=== PATIENT | female | born 1945 | race Caucasian/White ===

== ENCOUNTER → 2020-07-23 15:21 | Outpatient (CLI) | payer MEDICARE, SELFPAY ==
--- NOTE | 2020-07-23 | DI.MG.S_ITS ---
BILATERAL DIGITAL SCREENING MAMMOGRAM 3D/2D WITH CAD: 07/23/2020 CLINICAL: Routine screening. Baseline by default. No prior exams were available for comparison. There are scattered fibroglandular elements in both breasts. Current study was also evaluated with a Computer Aided Detection (CAD) system. There are segmental amorphous calcifications in the left breast at 12 o'clock middle depth. No other significant masses, calcifications, or other findings are seen in either breast. IMPRESSION: INCOMPLETE: NEEDS ADDITIONAL IMAGING EVALUATION The segmental coarse calcifications in the left breast are indeterminate. Recommend magnification views. If prior studies can be obtained for comparison, comparison can be made and further workup could possibly be averted. This exam was interpreted at Station ID: [id number]. NOTE: For mammograms, a report in lay terms will be sent to the patient. Approximately 15% of breast malignancies will not be visualized mammographically. In the management of a palpable breast mass, a negative mammogram must not discourage biopsy of a clinically suspicious lesion. Electronically Signed By: Daniele Walton acr/:07/24/2020 17:57:00 letter sent: Additional Imaging Needed ACR BI-RADS Category 0: Incomplete [id number]
== END ==
PROVIDERS: PCP Internal Medicine; Referring Provider Internal Medicine; Visit Provider Internal Medicine
DX: Z12.31 Encounter for screening mammogram for malignant neoplasm of breast (principal)
CPT/HCPCS: 77063; 77067

== ENCOUNTER → 2020-08-17 10:51 | Outpatient (CLI) | payer MEDICARE, SELFPAY ==
--- NOTE | 2020-08-17 | DI.MG.S_ITS ---
UNILATERAL LEFT DIGITAL DIAGNOSTIC MAMMOGRAM 3D/2D WITH ADDITIONAL VIEWS: 08/17/2020 CLINICAL: Additional evaluation requested from prior study. Comparison is made to exam dated: 07/23/2020 mammogram - [facility]. There are scattered fibroglandular elements in left breast. There are segmental coarse heterogeneous calcifications in the left breast at 1 o'clock middle depth. No other significant masses or calcifications are seen in the breast. IMPRESSION: SUSPICIOUS OF MALIGNANCY The segmental coarse heterogeneous calcifications in the left breast are at a low suspicion for malignancy. A stereotactic biopsy is recommended. Findings and recommendations were discussed with the patient during today's examination by Dr. Hager. This exam was interpreted at Station ID: [id number]. NOTE: For mammograms, a report in lay terms will be sent to the patient. Approximately 15% of breast malignancies will not be visualized mammographically. In the management of a palpable breast mass, a negative mammogram must not discourage biopsy of a clinically suspicious lesion. Electronically Signed By: Michael Doran M.D. aty/:08/17/2020 13:16:03 letter sent: Biopsy Required ACR BI-RADS Category 4a: Suspicious abnormality - low suspicion for malignancy [id number]
[2020-08-17 12:45] LABS: Aspartate Aminotransferase 27 IU/L (14-36); BUN Creatinine Ratio 30.3 (6-22); Blood Urea Nitrogen 20 mg/dL (7-17); Calcium 9.6 mg/dL (8.4-10.2); Carbon Dioxide 29 mmol/L (22-32); Chloride 99 mmol/L (98-107); Cholesterol 172 mg/dL (140-199); Estimated Glomerular Filt Rate > 60.0 mL/min (>60); Glucose 114 mg/dL (80-110); HDL Cholesterol 37 mg/dL (40-60); HEMOLYSIS < 15 (0-50); LDL Cholesterol Calculated 65 mg/dL (<100); Potassium 4.2 mmol/L (3.4-5.1); Sodium 136 mmol/L (137-145); Triglycerides 349 mg/dL (35-150)
--- NOTE | 2020-09-26 15:50 | ONC.MSW ---
Description: Initial Referral Navigation T/C Activity: M[facility] called and left pt a message confirming that we've received her referral. Requested a return call to clarify when she want's to schedule, there was a note in her records from her doctor stating that pt will be gone on a road trip for the next 2-months. Will update scheduling once we confirm her plan.
== END ==
PROVIDERS: PCP Internal Medicine; Referring Provider Internal Medicine; Visit Provider Internal Medicine
DX: R92.8 Other abnormal and inconclusive findings on diagnostic imaging of breast (principal); R92.1 Mammographic calcification found on diagnostic imaging of breast; I10 Essential (primary) hypertension; E78.2 Mixed hyperlipidemia
CPT/HCPCS: 36415; 77065; 80048; 80061; 84450; G0279

== ENCOUNTER → 2020-12-14 11:10 | Outpatient (CLI) | payer MEDICARE, SELFPAY ==
[2020-12-14] MEDS: COVID-19 VACC #1, MRNA(MOD) 100 MCG/0.5 ML VIAL IM (11:25)
== END ==
PROVIDERS: PCP Internal Medicine; Visit Provider Internal Medicine
DX: Z23 Encounter for immunization (principal)
CPT/HCPCS: 0011A; 91301

== ENCOUNTER → 2020-12-29 07:47 | Outpatient (CLI) | payer MEDICARE, SELFPAY ==
--- NOTE | 2020-12-29 08:00 | DI.MRI.S_ITS ---
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 PROCEDURE: MR BREAST BI WO/W CON INDICATIONS: Breast cancer, surgical planning, size of lesion TECHNIQUE: The patient was placed prone in a dedicated breast imaging coil. Precontrast axial STIR and 3D FLASH without fat saturation sequences were obtained. Both before and after bolus injection of contrast, sequential 1-minute axial 3D FLASH with fat saturation sequences for 3 time points, with subtraction images and maximum intensity projections (MIP's) generated. Delayed sagittal FLASH images with fat saturation were also obtained. Computer-aided detection, including computer algorithm analysis of MRI image data for lesion detection and characterization, pharmacokinetic analysis, with further physician review for interpretation, was performed. CONTRAST: 20 cc ProHance IV contrast. COMPARISON: [facility], MG, MG BREAST SPECIMEN LEFT, 09/06/2020, 13:24. [facility], MG, MG DIGITAL BREAST TOMOSYNTHESIS BREAST BIOPSY LEFT, 09/06/2020, 13:16. , , MM SPECIAL VIEW LT, 08/17/2020, 12:48. , MG, MM SCREENING MAMMO BI, 07/23/2020, 15:46. FINDINGS: Image quality: Excellent. There is mild background parenchymal enhancement. Right breast: No mass or suspicious enhancement. Left breast: There is clumped non mass enhancement in the 2-3 o'clock positions middle depth. This measures approximately 4 x 3.7 x 2.3 cm, (14/60 and /88). This corresponds to the mammographic region of coarse heterogenous and amorphous calcification which measures approximately 3.6 x 2.8 x 2.6 cm. Kinetic analysis demonstrates fast initial phase and washout delayed phase. Biopsy clip is at the superior margin of this lesion, (/72). There is an enhancing mass in the 7:00 position middle depth measuring 0.6 x 0.6 x 0.3 cm, (19/103 and 6/33). Kinetic analysis demonstrates fast initial phase and washout delayed phase. No correlate seen on prior mammograms. Miscellaneous: Enlarged left axillary lymph nodes. Largest measuring 2.1 x 1.7 x 1.5 cm, (4/115 and 19/119). There are a few small rounded intramammary lymph nodes in the left breast posterior depth. No enlarged right axillary nodes. IMPRESSION: KNOWN BIOPSY PROVEN MALIGNANCY 1. Right breast: No mass or suspicious enhancement. 2. Left breast: Clumped non mass enhancement at 2-3 o'clock middle depth at the site of biopsy proven DCIS. This corresponds to the region of amorphous and coarse heterogeneous calcifications. The area of enhancement is larger than the area of calcifications on mammogram, and thus mammogram may be underestimating the extent of disease. 3. Left breast: 7 o'clock middle depth enhancing mass measuring 0.6 cm. This is suspicious for multicentric disease. -Targeted ultrasound is recommended. 4. Axilla: Enlarged left axillary lymph nodes. -Targeted ultrasound is recommended. BIRADS 0, needs additional imaging. COMMENT: The imaging literature indicates that a negative contrast breast MRI examination has a high sensitivity and a moderate specificity for detecting and excluding invasive carcinomas to a detection threshold of 3-5 mm; nonetheless, appropriate clinical and mammographic follow-up are recommended. MRI is not sensitive for detecting DCIS (ductal carcinoma in situ) and may not detect large invasive neoplasms that show only minimal enhancement such as mucinous carcinoma. If there are suspicious calcifications or clinically worrisome palpable masses, then biopsy should still be considered. Invasive neoplasms can be hidden by co-existent and benign enhancement caused by mastitis, hormone therapy effects, radiation therapy, , and recent biopsy or surgery. False positive examinations can occur in a number of circumstances, including breasts that have recently been subject to invasive procedures and those that contain atypical ductal hyperplasia, hormonally stimulated glandular tissue, fat necrosis, or radial scars. Dictated by: Fransisco Larios M.D. on 12/29/2020 at 16:26 This exam was interpreted at Station ID: [id number]. Electronically Signed By: Fransisco Larios M.D. slc/:12/29/2020 17:42:21 copy to: PAT CHEEK BI-RADS Category 6: Known biopsy proven malignancy [id number]
== END ==
PROVIDERS: PCP Internal Medicine; Referring Provider Surgery; Visit Provider Surgery
DX: D05.12 Intraductal carcinoma in situ of left breast (principal); R59.0 Localized enlarged lymph nodes
CPT/HCPCS: 77049

== ENCOUNTER → 2021-01-11 11:00 | Outpatient (CLI) | payer MEDICARE, SELFPAY ==
[2021-01-11] MEDS: COVID-19 VACC #2, MRNA(MOD) 100 MCG/0.5 ML VIAL IM (11:09)
== END ==
PROVIDERS: PCP Internal Medicine; Visit Provider Internal Medicine
DX: Z23 Encounter for immunization (principal)
CPT/HCPCS: 0012A; 91301

== ENCOUNTER → 2021-01-11 11:21 | Outpatient (CLI) | payer MEDICARE, SELFPAY ==
--- NOTE | 2021-01-11 11:22 | DI.US.S_ITS ---
ULTRASOUND OF LEFT BREAST AND AXILLA: 01/11/2021 CLINICAL: Recent left breast cancer diagnosis. [facility] No prior exams were available for comparison. Color flow and real-time ultrasound of the left breast axilla were performed. Jaramillo scale images of the real-time examination were reviewed. There is a 0.7 cm x 0.2 cm x 0.4 cm wider than tall oval mass with mildly angular margins in the left breast at 4:30 o'clock middle depth 8 cm from the nipple. This oval mass is hypoechoic. This likely correlates with breast MRI findings. Color flow imaging demonstrates that there is no vascularity present. No significant abnormalities were seen sonographically in the left axilla. Normal axillary lymph nodes are visualized. IMPRESSION: SUSPICIOUS OF MALIGNANCY The 0.7 cm x 0.2 cm x 0.4 cm wider than tall oval mass in the left breast at the 4:30 o'clock position most likely correlates with MRI findings and is suspicious for malignancy. An ultrasound guided biopsy is recommended. Of note, this mass was described at the 7 o'clock position on MRI report, but review of images demonstrated that the finding is in the lower outer quadrant which correlates more closely to the 4:30 o'clock mass described above. Additionally, the 7 o'clock axis and lower inner quadrant of the left breast was interogated today and demonstrated no sonographic abnormalities. There are multiple normal appearing left axillary lymph nodes seen on today's study. No axillary adenopathy visualized. The prominent axillary lymph nodes seen on MRI likely represented reactive nodes. Findings and recommendations were discussed with the patient during today's examination. This exam was interpreted at Station ID: [id number]. Electronically Signed By: Michael Doran M.D. attami/:01/11/2021 17:28:08 copy to: PTA DAVIS letter sent: Biopsy Required Ultrasound BI-RADS: 4 Suspicious for malignancy
== END ==
PROVIDERS: PCP Internal Medicine; Referring Provider Surgery; Visit Provider Surgery
DX: N63.23 Unspecified lump in the left breast, lower outer quadrant (principal); R92.8 Other abnormal and inconclusive findings on diagnostic imaging of breast; D05.12 Intraductal carcinoma in situ of left breast
CPT/HCPCS: 76642

== ENCOUNTER → 2021-01-25 07:36 | Outpatient (CLI) | payer MEDICARE, SELFPAY ==
--- NOTE | 2021-01-25 | PATH_ITS ---
[facility] Accession Number: [id number] . 01 Material submitted: . breast - LEFT BREAST MASS 4:30 [id number] . 02 Diagnosis: Left Breast Mass 4:30, 8 cm from Nipple, Ultrasound-Guided Needle Core Biopsy: Ductal carcinoma in-situ of the breast with the following features: . Procedure: Needle Biopsy: Specimen laterality: left. Tumor site: 4:30, 8 cm from nipple. Histologic type: Ductal carcinoma in situ. Architectural pattern: Cribriform. Nuclear grade: Grade I (low). Necrosis: Not identified. Microcalcifications: Not identified. Biomarker studies: Please see microscopic description. MRV 01/30/2021 1457 Local . 02 Comment: Results discussed with Dr. Srikanth Barnard's nurse, on 01-30-21 at approximately 2:57 p.m. . 02 Electronically signed: . Gavi Arora MD, Pathologist NPI- [id number] . 01 Gross description: . Received one formalin-filled container, labeled with the patient's name and labeled L breast 4:30, 8 cm FN. The specimen is received with a plastic filter in container, sample loose in container and consists of multiple fragments of light yellow to yellow-odonnell pieces of soft tissue which range in size from less than 0.1 cm to 0.3 x 0.2 x 0.2 cm. The specimen is filtered and entirely submitted in one cassette. Possible collection date and time: 01/25/21 at 9:28. Total fixation time: Approximately 17 hours. ([id number]) /R 01/26/2021 0230 Local . 02 Microscopic: . Immunohistochemical stains were performed. The control stains show appropriate reactivity. . RESULTS: P63: Positive around regions of interest. Myosin: Positive around regions of interest. . The presence of myosin and p63 staining around the ducts of interest support an interpretation of ductal carcinoma in situ and mitigate against an invasive process. . Estrogen Receptor (ER) Status: Positive, greater than 90% of tumor nuclei. Average intensity of staining: Strong intensity. Primary antibody: SP1 . CK 5/6: Diminished in region of interest. . The absence of CK5/6 immunostaining and the strong immunopositivity of ER staining in the region of interest supports a diagnosis of ductal carcinoma in situ and mitigates against the presence of usual ductal hyperplasia. . * This test was developed and its performance characteristics determined by [employer]. It has not been cleared or approved by the U.S. Food and Drug Administration. The FDA has determined that such clearance or approval is not necessary. This test is used for clinical purposes. It should not be regarded as investigational or for research. . 02 Pathologist provided ICD-10: D05.12 . 02 CPT . 449123, 021437, O82248, Q08305 Performed at: [facility] [address] [id number] MD Maurice Tao MD Phone: [phone] Performed at: 02 [facility] [id number] [place] [id number] MD Aliza Muller MD Phone: [phone]
--- NOTE | 2021-01-25 | DI.MG.S_ITS ---
UNILATERAL LEFT DIGITAL DIAGNOSTIC MAMMOGRAM POST-EXCISIONAL BIOPSY: 01/25/2021 CLINICAL: Left breast mass. Comparison is made to exams dated: 01/11/2021 ultrasound, 12/29/2020 breast MRI, 08/17/2020 mammogram, and 07/23/2020 mammogram - [facility]. There are scattered fibroglandular elements in left breast. There is a marker clip in the appropriate position in the left breast at 4 o'clock. This marker clip placement is at the biopsy site. IMPRESSION: POST PROCEDURE MAMMOGRAM FOR MARKER PLACEMENT There was a successful marker clip placement in the left breast anterior depth. This exam was interpreted at Station ID: [id number]. NOTE: For mammograms, a report in lay terms will be sent to the patient. Approximately 15% of breast malignancies will not be visualized mammographically. In the management of a palpable breast mass, a negative mammogram must not discourage biopsy of a clinically suspicious lesion. Electronically Signed By: Aron bernal/:01/25/2021 12:59:13 copy to: PAT CHEEK BI-RADS Category Post-procedure mammogram for marker placement
--- NOTE | 2021-01-25 07:37 | DI.US.S_ITS ---
ULTRASOUND GUIDED BIOPSY LEFT BREAST USING VACUUM DEVICE WITH MARKING DEVICE INSERTED: 01/25/2021 CLINICAL: Left breast mass. PATIENT CONSENT: Risks (minor bleeding, infection, vasovagal reaction and repeat procedure), benefits and alternatives were explained to the patient and written informed consent was obtained. Correlation is made to exams dated: 01/25/2021 mammogram, 01/11/2021 ultrasound, 12/29/2020 breast MRI - [facility], 09/06/2020 specimen, 09/06/2020 stereotactic biopsy - [facility], and 07/23/2020 mammogram [facility]. An ultrasound guided biopsy using real-time ultrasound was performed for the lesion located in the left breast at 4 o'clock anterior depth. The skin was prepped in the usual manner. Local anesthetic was administered to the access site. A small incision was made in the breast. The abnormality was approached from the lateral aspect. A biopsy needle was placed adjacent to the abnormality under ultrasound guidance. Once the needle was documented to be in the correct location, ten specimens were obtained using the Mammotome biopsy system. The patient received additional local anesthetic during the procedure. A clip was inserted into the biopsy cavity. The specimens were sent to the laboratory for pathological analysis. IMPRESSION: ULTRASOUND GUIDED BIOPSY MALIGNANT Ultrasound guided biopsy of the lesion in the left breast at 4 o'clock anterior depth was successful. Pathology demonstrate Ductal carcinoma in-situ. Pathology results are concordant with imaging findings. A surgical/oncologic consultation is recommended. This exam was interpreted at Station ID: [id number]. Aron bernal,slc/:01/31/2021 12:26:56 copy to: PAT DAVIS
== END ==
PROVIDERS: PCP Internal Medicine; Referring Provider Surgery; Visit Provider Surgery
DX: D05.12 Intraductal carcinoma in situ of left breast (principal)
CPT/HCPCS: 19083; 77065

== ENCOUNTER → 2021-03-28 08:16 | Outpatient (CLI) | payer MEDICARE, SELFPAY ==
[2021-03-28 12:28] LABS: COVID19 -Nasal RAPID Negative (Negative)
== END ==
PROVIDERS: PCP Internal Medicine; Visit Provider Specialist
DX: Z20.822 Contact with and (suspected) exposure to COVID-19 (principal)
CPT/HCPCS: 87635; C9803

== ENCOUNTER 2021-03-29 07:41 | Day surgery (SDC) | payer MEDICARE, SELFPAY ==
[2021-03-22 15:00] VITALS: BMI 31.1
[2021-03-29] VITALS (11 sets, daily range): BP systolic 95–166; BP diastolic 44–89; PULSE 80–89; RESP 11–16; TEMP 36.1–36.9; O2SAT 93–98; BMI 31.7
--- NOTE | 2021-03-29 | DI.MG.S_ITS ---
SPECIMEN: 03/29/2021 CLINICAL: Breast cancer. Correlation is made to exams dated: 03/29/2021 localization, 01/25/2021 ultrasound biopsy, 01/25/2021 mammogram, and 12/29/2020 breast MRI - [facility]. Left breast specimen contains the cork biopsy clip and the localization wire. Left breast specimen contains the vision biopsy clip and the localization wire. IMPRESSION: SPECIMEN Left breast specimens contains the two biopsy clips. Initial findings discussed with Dr. Johnathon Catalan by Dr. Fransisco Larios. This exam was interpreted at Station ID: [id number]. Fransisco Larios M.D. slc/:03/29/2021 13:47:59 copy to: PAT DAVIS
--- NOTE | 2021-03-29 | PATH_ITS ---
[facility] Accession Number: [id number] . 01 Material submitted: . PART A: breast - LEFT BREAST TISSUE PART B: breast - LEFT BREAST TISSUE PART C: breast - LEFT BREAST TISSUE PART D: breast - LEFT BREAST LATERAL MARGIN . 01 Clinical history: . LEFT NEEDLE LOCALIZATION 2 LESIONS / BX . 01 Diagnosis: A. 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 - Nuclear grade: Intermediate. - Necrosis: Present (single cell necrosis). - Extent of DCIS: Present on more than one slide (continuously, 12 slides with DCIS), corresponding to tissue slices 3-9, spanning approximately 3.8 cm. - Calcifications: Present, in association with DCIS, media of vessels, and benign breast parenchyma. - Resection margins with the closest distance as follows: - Posterior margin: SEE COMMENT. - Lateral margin: 0.055 cm (A6). - Postero-lateral margin: 0.1 cm (A6). - Medial margin: 0.22 cm. - Anterior margin: 0.8 cm. - Superior and inferior margins: More than 1 cm. (Please see final/additional margins below (parts B, C, D below). - Prognostic marker status (as reported on prior biopsy, [facility] case #: [id number], 09/06/2020): - Estrogen receptor status: Positive. - Nipple, skin, skeletal muscle, and regional lymph nodes: Not present for evaluation. - No evidence of invasive malignancy. - Pathologic stage: pTis. - Additional findings: - Focal atypical ductal hyperplasia and flat epithelial atypia. - Background fibrocystic change including columnar cell change/columnar cell hyperplasia, apocrine metaplasia, microcystic duct dilatation, sclerosing adenosis, hyalinized fibroadenoma, and an incidental small intraductal papilloma. - Biopsy site changes are present. . B. Left Breast Tissue, Superior Lateral Margin, Excision: Breast parenchyma with fibrocystic change including microcystic duct dilatation and focal microcalcifications. Negative for atypia, carcinoma in situ, and malignancy, including evaluation of all margins. . C. 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 - Nuclear grade: Low to Intermediate. - Necrosis: present (single cell necrosis). - Extent of DCIS: Present on 2 slides (discontinuous), corresponding to tissue slices 5 and 13, spanning approximately 0.8 cm. - Calcifications: Present, in association with DCIS. - Resection margins with the closest distance as follows: - Superior margin: Positive (cauterized, C18). - Supero-lateral margin: Positive (small focus, cauterized, C18) - Anterior margin: 0.1 cm (rare minute focus, C6). - All other margins: More than 1 cm. (Please see final/additional margins (parts A, B and D). - Prognostic marker status (as reported on prior biopsy, [facility] case #: [id number], 01/25/2021): - Estrogen receptor status: Positive. - Nipple, skin, skeletal muscle, and regional lymph nodes: Not present for evaluation. - No evidence of invasive malignancy. - Pathologic stage: pTis. - Additional findings: - Background fibrocystic change including columnar cell change/columnar cell hyperplasia, apocrine metaplasia, microcystic duct dilatation, focal adenosis, and usual ductal hyperplasia. - Focal atypical ductal hyperplasia is present. - Biopsy site changes are present. . D. Left Breast Tissue, Lateral Margin, Excision: Residual ductal carcinoma in situ (DCIS) with the following features: - Architectural pattern: Cribriform and solid. - Nuclear grade: Low to Intermediate. - Extent of DCIS: Present on 3 tissue slices (discontinuous), spanning approximately 0.9 cm. - Resection margins with the closest distance as follows: - Lesion site/Blue ink: Very close, less than 0.05 cm. - Opposing to lesion site/Green ink: 0.6 cm. Breast parenchyma with fibrocystic change including sclerosing adenosis with associated microcalcifications. No evidence of invasive malignancy. . COMMENT: In part A, DCIS is seen within 0.055 cm from the posterior margin (A6); in addition, in A16, a cauterized focus of atypical intraductal proliferation at the posterior margin is highly worrisome for DCIS positive at a cauterized posterior margin; however, cautery artifact precludes definitive categorization. Deeper levels and ancillary studies are attempted, but are not contributory. [facility] 04/05/2021 1858 Local . 01 Electronically signed: . Fatou Corey MD, Pathologist NPI- [id number] . 01 Gross description: . A. Specimen A is received in formalin labeled breast lumpectomy and consists of a left lumpectomy specimen. . Weight: 90 grams. Measurement: 6.5 cm from superior to inferior x 7.2 cm from medial to lateral x 4.6 cm from anterior to posterior. Skin Ellipse: Absent. Wire: Present entering the lateral aspect. Margins: The specimen is oriented with a long suture designated anterior and a short suture designated superior, and is inked as follows: superior blue, inferior green, anterior red, posterior black, medial yellow and lateral orange. Slice: From superior to inferior into twelve slices No grossly or palpably obvious lesion is identified. Other: The cut surfaces are composed of approximately 70 percent wolfe-yellow lobulated adipose tissue and 30 percent firm wolfe-white focally cystic fibrous tissue. Fish Rod Maker sections are submitted. . A1 - Slice 1, superior margin, membership sales representative perpendicular sections. A2 - Slice 2, posterior margin. A3 - Slice 3, medial margin. A4 - Slice 3, posterior margin. A5 - Slice 4, medial and posterior margins. A6 - Slice 4, lateral and posterior margins. A7-A8 - Slice 5, posterior margin. A9 - Slice 5, posterior and lateral margins. A10 - Slice 6, anterior margin. A11 - Slice 6, posterior margin. A12 - Slice 7, anterior and lateral margins. A13 - Slice 7, posterior margin. A14 - Slice 8, anterior margin. A15 - Slice 8, posterior margin. A16 - Slice 9, posterior margin. A17 - Slice 9, posterior and lateral margins. A18 - Slice 10, anterior and medial margins. A19 - Slice 10, posterior and medial margins. A20 - Slice 11, anterior margin. A21 - Slice 11, posterior margin. A22 - Slice 12, inferior margin, membership sales representative perpendicular sections. . Formalin fixation time: Approximately 96 hours. . B. Specimen B is received in formalin labeled left breast superior lateral margin and consists of a 13 gram, 5.0 x 4.1 x 1.5 cm wolfe- yellow fragment of fibroadipose tissue with a suture along one surface designated lesion site. The sutured side is inked blue and the opposing surface is inked green. The specimen is serially sectioned and entirely submitted. . B1-B2 - End, perpendicularly sectioned. B3-B15 - Central cross-sections (area of suture in approximately B6). . C. Specimen C is received in formalin labeled left breast and consists of a left lumpectomy specimen. Weight: 44 grams. Measurement: 5.0 cm from superior to inferior x 6.0 cm from medial to lateral x 2.8 cm from anterior to posterior. Skin Ellipse: Absent. Wire: Present entering the inferior aspect. Margins: The specimen is oriented with a short suture designated superior and a long suture designated lateral, and is inked as follows: superior blue, inferior green, anterior red, posterior black, medial yellow and lateral orange. Slice: From medial to lateral into fifteen slices. Lesion: There is a silver metallic balloon-shaped biopsy margin with minimal surrounding fibrous tissue within slice 5. Distance to Margin: 0.5 cm from the anterior margin, 0.6 cm from the posterior margin, and greater than 2 cm from all remaining margins. Other: The remaining cut surface are composed of approximately 85 percent wolfe-yellow lobulated adipose tissue and 15 percent wolfe-white fibrous tissue. Fish Rod Maker sections are submitted. . C1 - Slice 1, medial margin, membership sales representative perpendicular sections. C2-C3 - Slice 2, bisected and entirely submitted. C4 - Slice 3, anterior and posterior margins. C5-C6 - Slice 4, anterior and posterior margins. C7-C9 - Slice 5, trisected and entirely submitted (site of biopsy marker in C8). C10 - Slice 6, anterior and posterior margins (lateral to biopsy marker). C11-C16 - Slices 7-12, anterior and posterior margins. C17 - Slice 13, anterior and posterior margins. C18 - Slice 13, anterior, posterior and superior margins. C19 - Slice 14, anterior and posterior margins. C20 - Slice 15, lateral margin, membership sales representative perpendicular sections. C21 - Remainder of slice 7. C22 - Slice 9, anterior and posterior margins. C23 - Slice 13. . Formalin fixation time: Approximately 96 hours. ([id number]) . D. Specimen D is received in formalin labeled left breast lateral margin and consists of a 6 gram, 3.0 x 2.2 x 2.0 cm wolfe-yellow fragment of adipose tissue and round skeletal muscle. There is a suture at one side designated lesion. The lesion side is inked blue and the opposing surface is inked green. The specimen is serially sectioned and entirely submitted. . D1 - End, perpendicularly sectioned. D2-D6 - Central cross sections. ([id number]) /[facility] 04/04/2021 1558 Local . 01 Microscopic: . A. P63 and smooth muscle myosin are performed on A6, in order to assess the areas of DCIS for solid papillary and expansile growth pattern and rule out solid papillary carcinoma, with appropriately staining external controls; P63 and smooth muscle myosin are retained at the periphery (and within the fibrovascular cores) of the DCIS, in support of the dignosis. CK5/6 and ER with additional deepers are used to evaluate a possible involved posterior margin in block A6; The focus of interest is exhausted on deeper sectioning. . C. CK5/6 and ER are used to evaluate a cauterized focus of DCIS in C18; There is loss of CK5/6 and overexpression of ER at the cauterized superior margin, in support of the diagnosis. . * This test was developed and its performance characteristics determined by [employer]. It has not been cleared or approved by the U.S. Food and Drug Administration. The FDA has determined that such clearance or approval is not necessary. This test is used for clinical purposes. It should not be regarded as investigational or for research. . 01 Pathologist provided ICD-10: D05.12 . 01 CPT . 074305, 348102, 952011, 299334, Y15365, B50055 Performed at: 01 [facility] [address] [place] [address] Suite [facility], [place], [place] [id number] MD Maurice Tao MD Phone: [phone]
--- NOTE | 2021-03-29 07:56 | DI.MG.S_ITS ---
MULTIPLE DIGITAL MAMMOGRAPHY GUIDED WIRE LOCALIZATION LEFT BREAST: 03/29/2021 CLINICAL: Breast cancer. No prior exams were available for correlation. A wire localization using digital mammography guidance was performed for the marker clip located in the left breast at 2 o'clock middle depth. The skin was prepped in the usual manner. Local anesthetic was administered to the access site. The localization was approached from the lateral aspect. A wire was inserted adjacent to the marker under digital mammography guidance. Post placement imaging demonstrates the tip demarcates the boundaries 2.9cm medial, 1.7cm anterior from the marker. A wire localization using digital mammography guidance was performed for the marker clip located in the left breast at 4 o'clock posterior depth. The skin was prepped in the usual manner. A wire was inserted adjacent to the marker under digital mammography guidance. Post placement imaging demonstrates the tip demarcates the boundaries 2.4cm medial, 0.7cm anterior from the marker. IMPRESSION: WIRE LOCALIZATION Wire localization for the marker clip in the left breast at 2 o'clock middle depth was successful with no apparent post procedure complications. Wire localization for the marker clip in the left breast at 4 o'clock posterior depth was successful with no apparent post procedure complications. This exam was interpreted at Station ID: [id number]. Constantine rodriguez/:03/29/2021 10:22:28 copy to: PAT DAVIS
--- NOTE | 2021-03-29 09:07 | SUR.PREOP ---
Pt taken to radiology by Shamar.
[2021-03-29] MEDS: LACTATED RINGERS 1,000 ML 42 ML IV ×2 (10:23→13:03)
--- NOTE | 2021-03-29 10:48 | SUR.OPER ---
Supine on padded OR bed, head on pillow, arms secured on padded arm boards at <90 degrees abduction, legs uncrossed, safety belt at thigh, tape over blanket over lower legs.
--- NOTE | 2021-03-29 10:52 | PM.PREOP ---
Pre-operative Note COVID-19 COVID-19 status: Negative Result date/Date tested (Pos, Neg/Pending): 03/28/21 Interval Note History & Physical reviewed/Exam performed by Physician: Yes Changes to H&P: No
--- NOTE | 2021-03-29 11:03 | PM.PREOP ---
Pre-operative Note Interval Note History & Physical reviewed/Exam performed by Physician: Yes Changes to H&P: Yes H&P completed within 30 days and has changed as indicated here:: Addendum to prior note: Reviewed needle localization images. They were quite confusing. The radiologist assures me that the needle findings of the 2nd needle are probably due to the way the breast was compressed. Based on the images I should be able to use 1 needle the 1 that seems to be appropriate, to remove both sections of tissue. My concern is that the 2nd needle may have moved but hopefully that will not impact my ability to use the visible needle that seems to be in appropriate location to take out both specimens In 1 piece.
[2021-03-29] MEDS: CEFAZOLIN 1 GM VIAL IRR (11:48)
[2021-03-29] MEDS: BUPIVACAINE 0.5% (PF) VIAL 30 ML INJ (11:49)
--- NOTE | 2021-03-29 14:20 | PM.OP.1 ---
Operative Date/Time/Diagnoses Date of procedure: 03/29/21 Time of procedure: 14:20 Pre-op diagnosis: DCIS left breast 2 foci. Post-op diagnosis: same Procedure & Clinicians Procedure: Needle localization quadrant ectomy left breast Same procedure as scheduled: Yes Indications: patient is a woman with 2 foci of DCIS in her left breast. She declined a mastectomy which would be standard treatment and opted to have each removed with needle localization. Surgeon: Johnathon Catalan Click Yes if Unassisted: Yes Anesthesia Type: General Operative Notes Findings: Both clips were removed in 2 specimens. Prosthetic devices, grafts, tissues, transplants, or devices: None Estimated Blood Loss (mL): 20 Blood products transfused: none Procedure in detail: Prior to the procedure the films were reviewed with the radiologist who did the needle localization. He felt that the lesions were near enough to 1 another that they could be removed by taking the tissue posterior to the needles. The fact that I could not see the end of the needle on 1 of the images did not disturb him as he felt that manipulation of the breast during the mammogram may have caused the distortion. The Patient was taken to the operating room and prepped and draped in the usual fashion. The needle length was trimmed to make them workable in easy to prep. Curvilinear incision was made in the lateral breast. Because of uncertainty of the needle placement of 1 of the needles I decided to try to remove the tissue with a generous lumpectomy. Incision was carried down in the deep subcu fat of the breast and using 1 needle as a guide I removed the tissue around it and extended this dissection inferiorly to the inferior aspect of the lower quadrant. The specimen was detached and sent for mammography. The radiologist felt that will only 1 clip was in the specimen and a repeat image was performed with different specimen orientation to confirm that. The radiologist called back to say that he believed the 2nd biopsy marker was actually not visualized on the lateral film and therefore the 2nd needle may actually have been in the correct position. I carefully dissected anterior to this needle which was immediately under the skin for most of its path. Using it as a guide I found it and dissected the tissue posterior to it to nearly the chest wall. I removed this tissue and sent it as specimen. specimen mammogram revealed the 2nd biopsy marker was in this specimen. Of note, the superior edge of this specimen was in continuity with the inferior edge of the prior specimen. That is, the inferior border of the 1st specimen was in fact the superior margin of the 2nd specimen. Two other additional pieces of tissue were removed from the lateral and superior lateral biopsy sites of the 1st specimen to ensure that this edge was clear, since I was dealing with DCIS. All of the 4 specimens were oriented with suture material. The 2 large pieces of tissue left me with a fairly significant cavity. I used a clip wildlife manager to jessica the edge of my dissection of this cavity. I.e. made an incision in the lateral most tissues in order to try to bring them superiorly and partially close this large defect. I succeeded in doing so but I was still left with a sunken appearance at the side of my biopsy site. I really had no way to adequately fill that tissue in. Manipulating the medial tissue with a brought the nipple laterally and anything less than that would have really not helped close the large defect. The tissues as best as possible were reapproximated with 3-0 Vicryl. This left a fairly large cavity. The tissues immediately under the skin were closed with interrupted 3 Vicryl and skin was closed a running 4-0 Vicryl subcuticular stitch and Steri-Strips. Dressing was applied and the patient was taken the recovery area in good condition. Complications: none Post-operative Condition: stable Disposition: PACU
[2021-03-29] MEDS: ACETAMINOPHEN 325 MG TABLET 975 MG PO (14:50)
--- NOTE | 2021-03-29 15:17 | SUR.PHASEI ---
Pt transfered to OPD with SBAR report given at bedside to Venus Calderón. Pt awake, alert. Tolerated Acetaminophen after refusing oxycodone as she states it gives her hallucinations. Call light in reach. Bed in low position.
--- NOTE | 2021-03-29 15:20 | SUR.PHASEII ---
Pt rcvd in pacu phase 2 in stable condition, VSS, drinking juice without problems, talking with staff in good spirits. Pt states 5/10 pain in left breast but tolerable and relaxed resting comfortably.
--- NOTE | 2021-03-29 15:54 | SUR.PHASEII ---
1545-Pt up and ambulating gait steady, dressed and ready to go, all dc instructions given and pt verbalizes understanding and states will hold off from picking up rx for norco because she intends on taking care of her pain with acetaminophen. Dcd via wc in stable condition with all belongings and in good spirits
== END 2021-03-29 15:45 | disposition home or self-care (01) ==
PROVIDERS: PCP Internal Medicine; Referring Provider Specialist; Visit Provider Specialist
PROC: (CPT 19125; principal; 2021-03-29 10:30)
DX: D05.12 Intraductal carcinoma in situ of left breast (principal); F41.9 Anxiety disorder, unspecified; I10 Essential (primary) hypertension; E78.5 Hyperlipidemia, unspecified
CPT/HCPCS: 19125; 19126; 19282; 19281; 76098; C1819; J0690; J1100; J2250; J2405; J2704; J3010

== ENCOUNTER → 2021-05-16 09:22 | Outpatient (CLI) | payer MEDICARE, SELFPAY ==
[2021-05-16 11:21] LABS: COVID19 -Nasal RAPID Negative (Negative)
== END ==
PROVIDERS: PCP Internal Medicine; Visit Provider Specialist
DX: Z01.812 Encounter for preprocedural laboratory examination (principal); Z20.822 Contact with and (suspected) exposure to COVID-19
CPT/HCPCS: 87635; C9803

== ENCOUNTER 2021-05-17 08:21 | Day surgery (SDC) | payer MEDICARE, SELFPAY ==
[2021-05-12 10:38] VITALS: BMI 31.6
[2021-05-17] VITALS (9 sets, daily range): BP systolic 123–169; BP diastolic 65–93; PULSE 83–96; RESP 12–17; TEMP 36.4–36.9; O2SAT 94–98; BMI 31.6
--- NOTE | 2021-05-17 | PATH_ITS ---
[facility] Accession Number: [id number] . 01 Material submitted: . breast - LEFT BREAST TISSUE . 01 Clinical history: . LEFT BREAST TISSUE, BIOPSY SCAR IS LATERAL, LONG STITCH TAIL OF [place], SHORT STITCH ADENOPATHY . 02 Diagnosis: Left Breast, Mastectomy: 1. No evidence of residual ductal carcinoma in situ. 2. No evidence of invasive carcinoma. 3. Changes consistent with prior procedure. 4. Six lymph nodes negative for metastatic carcinoma (pN0). 5. Fibrocystic changes, including microcysts, apocrine change and fibrosis. 6. Microcalcifications present in association with non-neoplastic breast tissue. 7. Seborrheic keratosis. [facility] 05/24/2021 1609 Local . 02 Electronically signed: . Aliza Muller MD, Pathologist NPI- [id number] . 01 Gross description: . The specimen is received in formalin, labeled left breast tissue and consists of a left radical mastectomy specimen. Weight: 652 grams. Measurement: 22.0 cm from medial to lateral by 23.0 cm from superior to inferior by 7.0 cm from anterior to posterior. Skin Ellipse: There is an 11.8 x 8.2 cm wolfe skin ellipse with a 5.0 x 0.1 cm scar located laterally. The wolfe-pink slightly everted nipple measures 0.8 x 0.8 x 0.2 cm and there is an ill-defined 3.5 x 3.0 cm areolar complex with multiple irregular wolfe-pink nodular lesions ranging from 0.1-0.7 cm. Axillary Tail: There is a 3.0 x 3.0 x 2.0 cm area with a short suture laterally designated adenopathy. Margins: The specimen is oriented with a scar designated lateral, a long suture designated tail of [place], and a short suture designated adenopathy. The specimen is inked as follows: Anterosuperior blue, anteroinferior green, and posterior black. Slices: The specimen is serially sectioned from medial to lateral into 17 slices. Lesion: There is a 6.5 x 4.7 x 2.5 cm wolfe to wolfe-pink, hemorrhagic biopsy cavity within slices 10-15 with surrounding fibrosis and fat necrosis and multiple embedded hemostatic clips within the lower to mid outer quadrants. Distance to Margins: 0.5 cm from the posterior margin, 2.0 cm from the closest anterosuperior and anteroinferior margins, 2.0 cm from the nearest skin margin, and greater than 2 cm from the medial and lateral margins. The biopsy cavity underlies the skin scar and is 2.0 cm from the nipple. Other: The remaining cut surfaces are composed of approximately 75% wolfe-yellow lobulated adipose tissue and 25% wolfe-white fibrous tissue. Two wolfe firm lymph nodes are identified within the area designated adenopathy, measuring 1.5 x 1.0 x 1.0 cm and 2.5 x 1.5 x 1.4 cm. Two additional lymph nodes are identified within slices 16 and 17 measuring 1.0 x 0.9 x 0.6 cm and 2.0 x 1.6 x 1.5 cm. Mailing Machine Helper sections are submitted. . A1: Nipple, serially sectioned and entirely submitted. A2-A3: Slices 8 and 9, medial to biopsy cavity. A4: Slice 10, biopsy cavity in relation to skin. A5-A7: Slice 11, personnel representative biopsy cavity. A8: Slice 12, biopsy cavity in relation to posterior margin. A9: Slice 12, biopsy cavity in relation to closest anteroinferior margin. A10: Slice 13, biopsy cavity in relation to posterior margin. A11: Slice 13, mass in relation to closest anterosuperior margin. A12: Slice 13, personnel representative biopsy cavity. A13: Slice 13, personnel representative scar. A14: Slice 14, biopsy cavity. A15: Slice 15, biopsy cavity. A16: Slice 16, lateral to biopsy cavity. A17-A18: Upper inner quadrant. A19: Upper outer quadrant. A20-A21: Lower inner quadrant. A22: Nipple base and skin lesions. A23-A24: Lymph node from slice 16, serially sectioned. A25: Lymph node from slice 17, bisected. A26: Smaller lymph node from area designated adenopathy, trisected. A27-A29: Larger lymph node from area designated adenopathy, serially sectioned. A30: Lower inner quadrant. A31: One lymph node candidate, inferior to biopsy cavity, bisected. A32: One lymph node candidate, bisected. Formalin fixation time: Approximately 60 hours. (EA:[id number]) /[facility] 05/24/2021 1609 Local . 02 Microscopic: . Immunohistochemical stains were performed on blocks containing lymph nodes, A23 through A29. In each of these immunohistochemical studies, the MAYRA stain is negative, which excludes the possibility of isolated tumor cells and metastatic carcinoma. The control stain showed appropriate reactivity. . * This test was developed and its performance characteristics determined by [employer]. It has not been cleared or approved by the U.S. Food and Drug Administration. The FDA has determined that such clearance or approval is not necessary. This test is used for clinical purposes. It should not be regarded as investigational or for research. . 02 Pathologist provided ICD-10: D05.12 . 02 CPT . 604997, P77106 Performed at: 01 [facility] [address], [place], [place] [id number] MD Maurice Tao MD Phone: [phone] [facility]formed at: 02 [facility] [id number] [place] [id number] MD Aliza Muller MD Phone: [phone]
[2021-05-17] MEDS: LACTATED RINGERS 1,000 ML 42 ML IV ×2 (09:06→13:06)
--- NOTE | 2021-05-17 11:15 | PM.PREOP ---
Pre-operative Note COVID-19 COVID-19 status: Negative Result date/Date tested (Pos, Neg/Pending): 05/16/21 Interval Note History & Physical reviewed/Exam performed by Physician: Yes Changes to H&P: No
[2021-05-17] MEDS: CEFAZOLIN 1 GM VIAL 2 GM IV (11:40)
--- NOTE | 2021-05-17 11:57 | SUR.OPER ---
Supine on padded OR bed, head on pillow, arms secured on padded arm boards at <90 degrees abduction, legs uncrossed, pillow under knees, safety belt at thigh, tape over blanket over lower legs.
--- NOTE | 2021-05-17 14:46 | SUR.PHASEI ---
Received to PACU after general anesthesia. Airway patent, self maintained. Report received from ARIELLA Gan and Dr Cevallos.
--- NOTE | 2021-05-17 14:48 | PM.OP.1 ---
Operative Date/Time/Diagnoses Date of procedure: 05/17/21 Time of procedure: 14:49 Pre-op diagnosis: DCIS extensive left breast. Post-op diagnosis: same Procedure & Clinicians Procedure: Left mastectomy with biopsy of several deep lymph nodes. Same procedure as scheduled: Yes Indications: Patient is a woman who had 2 areas of DCIS in different quadrants in her left breast. She declined mastectomy initially and underwent removal of these 2 areas. The margins were positive and a significant amount of breast tissue was removed. She decided not to go back and have re-excision of margins but to have a mastectomy and therefore she is brought in for that. Surgeon: Johnathon Catalan Click Yes if Unassisted: Yes Anesthesia Type: General Operative Notes Findings: Prior biopsy cavity was not entered during the procedure. There were several large nodes which I took out in continuity with the specimen. Closure Type: primary Specimen(s): other (Breast and several axillary nodes) Applied: drain(s) (One Edvin drain placed under the flap and around the over the axilla.) Estimated Blood Loss (mL): 150 Procedure in detail: Patient was placed supine on the operating room table and underwent general LMA anesthesia. She was prepped and draped in the usual fashion. I melissa out an elliptical incision which would encompass the prior biopsy scar which was on the left aspect of the nipple-areolar complex and also would encompass most of the biopsied sites. Incisions made along the upper trajectory of this E lips. This carried in the subcu and a flap was raised superiorly to the we also went laterally near the attachments of pectoralis major to the shoulder. I incised the fascia superior and medially. I then incised the lower portion of the ellipse and lifted the flap and dissected beyond the inferior mammary fold. I incised the fascia here as well. Creating this inferior flap resulted in a small area where the prior biopsy site was densely adhered to the skin. I used a knife through this area to separate the tissues from the overlying skin. The flap in this area consisted essentially of epidermis and dermis. I then created the lateral flap down to the latissimus Bradley. I Then used cautery to take the breast off from superior to inferior and medial to lateral. There were some palpable nodes in the inferior aspect of the axilla and I took these with specimen. I examined the remainder of the axilla and there were no enlarged nodes elsewhere. I suspect these were just reactive but because they were enlarged they were removed. The specimen was ultimately detached and I marked the nodes as well as the tail of Mason with suture. The flap and chest wall was irrigated as was the axilla and suctioned free of fluid. Meticulous hemostasis was obtained. A Edvin drain was brought out through a separate stab incision inferior and lateral. The drain itself was placed up over the axilla and the superior portion of the flap. It was secured with a 3-0 nylon. The subQ was closed with interrupted 3-0 Vicryl. I did excise the dog ears medially and laterally at least in part. This flattened the wound considerably. The skin was closed a running 4-0 Vicryl subcuticular stitch and a few interrupted 3-0 nylon sutures laterally. Dressing was applied the patient was awakened extubated and taken the recovery room good condition. Complications: none Post-operative Condition: stable Disposition: PACU
--- NOTE | 2021-05-17 16:23 | SUR.PHASEII ---
Awaiting discharge orders. Pt sitting up in bed eating applesauce and crackers. 75cc's bloody drainage emptied from DOMINIQUE No complaints voiced. Pt is eager to return home.
== END 2021-05-17 17:20 | disposition home or self-care (01) ==
LOC: OR 08:23 → AC 08:23
PROVIDERS: PCP Internal Medicine; Referring Provider Specialist; Visit Provider Specialist
PROC: 0HTU0ZZ Resection of Left Breast, Open Approach (ICD-10-PCS; CPT 19307; principal; 2021-05-17 09:45)
DX: D05.12 Intraductal carcinoma in situ of left breast (principal); I10 Essential (primary) hypertension
CPT/HCPCS: 19307; 82962; J0690; J1100; J2405; J2704; J3010

== ENCOUNTER → 2022-05-10 15:24 | Outpatient (CLI) | payer MEDICARE, SELFPAY ==
[2022-05-10 17:47] LABS: Alanine Aminotransferase 26 IU/L (<35); Albumin 4.5 g/dL (3.5-5.0); Albumin Globulin Ratio 1.4 (1.0-2.8); Alkaline Phosphatase 98 U/L (38-126); Aspartate Aminotransferase 36 IU/L (14-36); BUN Creatinine Ratio 25.8 (6-22); Bilirubin Total 0.5 mg/dL (0.2-1.3); Blood Urea Nitrogen 17 mg/dL (7-17); Calcium 9.2 mg/dL (8.4-10.2); Carbon Dioxide 30 mmol/L (22-32); Chloride 100 mmol/L (98-107); Cholesterol 185 mg/dL (140-199); Estimated Glomerular Filt Rate > 60 mL/min (>60); Globulin 3.3 g/dL (1.7-4.1); Glucose 109 mg/dL (80-110); HDL Cholesterol 37 mg/dL (40-60); HEMOLYSIS < 15 (0-50); LDL Cholesterol Calculated 96 mg/dL (<100); Potassium 4.5 mmol/L (3.4-5.1); Sodium 139 mmol/L (137-145); Total Protein 7.8 g/dL (6.3-8.2); Triglycerides 259 mg/dL (35-150)
[2022-05-10 17:53] LABS: Hematocrit 41.4 % (36-46); Hemoglobin 14.2 g/dL (12.0-16.0); Mean Corpuscular HGB Conc 34.3 % (30-36); Mean Corpuscular Hemoglobin 29.2 PG (26-34); Mean Corpuscular Volume 85.1 fL (80-100); Platelet Count 284 X10^3/uL (150-400); Red Blood Cell Count 4.86 X10^6/uL (4.0-5.2); White Blood Cell Count 8.3 X10^3/uL (4.5-11.0)
[2022-05-10 18:16] LABS: TSH w/ Reflex to FT4 1.55 uIU/mL (0.47-4.68)
== END ==
PROVIDERS: PCP Internal Medicine; Referring Provider Internal Medicine; Visit Provider Internal Medicine
DX: D05.12 Intraductal carcinoma in situ of left breast (principal); E78.2 Mixed hyperlipidemia; I10 Essential (primary) hypertension
CPT/HCPCS: 36415; 80053; 80061; 84443; 85027

== ENCOUNTER → 2022-09-25 15:24 | Outpatient (CLI) | payer MEDICARE, SELFPAY ==
--- NOTE | 2022-09-25 15:26 | DI.MG.S_ITS ---
UNILATERAL RIGHT DIGITAL SCREENING MAMMOGRAM 3D/2D WITH CAD: 09/25/2022 CLINICAL: Routine screening. Personal history of left breast cancer. Comparison is made to exam dated: 07/23/2020 mammogram - [facility]. There are scattered areas of fibroglandular density in the right breast (category b / 25%-50% glandular tissue). Current study was also evaluated with a Computer Aided Detection (CAD) system. There are benign calcifications in the right breast. There also is a biopsy clip in the right breast. No significant masses, calcifications, or other findings are seen in the breast. There has been no significant interval change. IMPRESSION: BENIGN There is no mammographic evidence of malignancy. A 1 year screening mammogram is recommended. This exam was interpreted at Station ID: [id number]. NOTE: For mammograms, a report in lay terms will be sent to the patient. Approximately 15% of breast malignancies will not be visualized mammographically. In the management of a palpable breast mass, a negative mammogram must not discourage biopsy of a clinically suspicious lesion. Electronically Signed By: Jordyn jackman/froilan:09/26/2022 10:53:46 copy to: PAT DAVIS letter sent: Normal Exam ACR BI-RADS Category 2: Benign Finding(s) 3342F
== END ==
PROVIDERS: PCP Internal Medicine; Referring Provider Internal Medicine Medical Oncology; Visit Provider Internal Medicine Medical Oncology
DX: Z12.31 Encounter for screening mammogram for malignant neoplasm of breast (principal); Z85.3 Personal history of malignant neoplasm of breast
CPT/HCPCS: 77063; 77067

== ENCOUNTER → 2023-03-21 13:21 | Outpatient (CLI) | payer MEDICARE, SELFPAY ==
--- NOTE | 2023-03-21 | DI.ECHO.S_ITS ---
[facility] +---------+ : : [address] : : : : [id number] : : : : Phone: [phone]+ Echocardiogram Report + + :Name: GERARD FENG Study Date: 03/21/2023 Height: 61 in : :[facility] ReadingLocation: Weight: 166 lb : : Gender: Female BSA: 1.7 m2 : :: 1945 Age: 77 yrs BP: 142/81 mmHg: :Reason For Study: Chronic Systolic Heart Failure : :Ordering Physician: ANGEL, : :RAYSA Mast Performed By: Gaviota Thompson : :Referring: RAYSA KELLEY : + + Interpretation Summary The ejection fraction is estimated to be 50-55%. Diastolic parameters suggest probable normal left ventricular diastolic function and normal filling pressures. There is mild mitral regurgitation. There is trace aortic regurgitation. There is mild tricuspid regurgitation. The right ventricular systolic pressure is estimated to be at least 23 mmHg based on an estimated right atrial pressure of 3 mm Hg. Procedure: A two-dimensional transthoracic echocardiogram with color flow and Doppler was performed. The study quality was technically adequate. There is no prior echocardiogram noted for this patient. The patient was in normal sinus rhythm during the exam. The patient had frequent PACs during the exam. Left Ventricle: The left ventricle is normal in size. The ejection fraction is estimated to be 50-55%. Diastolic parameters suggest probable normal left ventricular diastolic function and normal filling pressures. Right Ventricle: The right ventricle is normal in size and function. Atria: The left atrial size is normal. Right atrial size is normal. There is no Doppler evidence for an interatrial shunt. Mitral Valve: The mitral valve leaflets appear mildly thickened, but open well. There is mild mitral annular calcification. There is no mitral valve stenosis. There is mild mitral regurgitation. Aortic Valve: The aortic valve is trileaflet. The aortic valve opens well. There is mild aortic valve sclerosis. There is no aortic valve stenosis. There is trace aortic regurgitation. Tricuspid Valve: The tricuspid valve is normal. There is no tricuspid stenosis. There is mild tricuspid regurgitation. The right ventricular systolic pressure is estimated to be at least 23 mmHg based on an estimated right atrial pressure of 3 mm Hg. Pulmonic Valve: The pulmonic valve leaflets are thin and pliable; valve motion is normal. There is no pulmonic valvular stenosis. There is trace pulmonic regurgitation. Great Vessels: The aortic root is normal size. The ascending aorta is normal in size. The pulmonary artery is normal size. The IVC is of normal diameter and collapses greater than 50% with a sniff. This suggests a low right atrial pressure of 3 mm Hg. Pericardium/ Pleura There is no pericardial effusion. MMode/2D Measurements & Calculations LVIDd: 2.8 cm LVOT diam: 1.8 cm LVIDs: 2.1 cm Ao root diam: 2.9 cm FS: 25.0 % asc Aorta Diam: 2.6 cm EPSS: 0.80 cm IVSd: 1.2 cm LVPWd: 1.1 cm LV sánchez. diameter/BSA (cm/m^2): 1.6 LV sys. diameter/BSA (cm/m^2): 1.2 LA A2 area: 14.0 cm2 RA long axis: 5.4 cm LA A4 area: 12.4 cm2 RA area: 12.0 cm2 LA length (vol): 4.5 cm RA vol: 22.6 ml LA vol: 32.4 ml RA : 12.9 ml/m2 LA vol index: 18.6 ml/m2 RVD1 (basal): 3.2 cm LVLs ap4: 5.7 cm LVLd ap2: 6.8 cm TAPSE_phl: 2.0 cm LVLs ap2: 6.1 cm Doppler Measurements & Calculations Ao V2 max: 122.0 cm/sec LVOT Max Manolo: 78.3 cm/sec Ao V2 mean: 85.4 cm/sec LV V1 max P.5 mmHg Ao max P.0 mmHg LV V1 VTI: 19.4 cm Ao mean P.0 mmHg VISHAL(I,D): 1.9 cm2 Ao V2 VTI: 25.5 cm VISHAL(V,D): 1.6 cm2 sev ratio: 0.76 VISHAL indexed to BSA (cm^2/m^2): 1.1 MV E max manolo: 83.6 cm/sec TR max manolo: 211.0 cm/sec MV A max manolo: 116.0 cm/sec TR max P.9 mmHg MV E/A: 0.72 PA V2 max: 99.7 cm/sec Med Peak E' Manolo: 5.0 cm/sec PA V2 mean: 66.6 cm/sec E/E' med: 16.6 PA mean P.0 mmHg Lat Peak E' Manolo: 7.8 cm/sec PA pr(Accel): 24.6 mmHg E/E' lat: 10.7 E/e' average: 13.6 MV dec time: 0.23 sec SV(LVOT): 49.4 ml AV VR_phl: 0.64 VISHAL(VTI)/BSA_phl: 1.1 MV P1/2t-pr_phl: 66.0 msec Reading Physician:09:24 AM
== END ==
PROVIDERS: PCP Student in an Organized Health Care Education/Training Program; Referring Provider Internal Medicine Cardiovascular Disease; Visit Provider Internal Medicine Cardiovascular Disease
DX: I50.22 Chronic systolic (congestive) heart failure (principal); I08.3 Combined rheumatic disorders of mitral, aortic and tricuspid valves
CPT/HCPCS: 93306

== ENCOUNTER → 2023-09-27 13:39 | Outpatient (CLI) | payer OTHER, SELFPAY ==
--- NOTE | 2023-09-27 13:43 | DI.MG.S_ITS ---
UNILATERAL RIGHT DIGITAL SCREENING MAMMOGRAM 3D/2D WITH CAD: 09/27/2023 CLINICAL: Routine screening. Personal history of left breast cancer. Comparison is made to exams dated: 09/25/2022 mammogram, 07/23/2020 mammogram, and 08/17/2020 mammogram - [facility]. There are scattered areas of fibroglandular density in the right breast (category b / 25%-50% glandular tissue). Current study was also evaluated with a Computer Aided Detection (CAD) system. There are grouped heterogeneous calcifications in the right breast at 12 o'clock posterior depth. These are more prominent and likely increased in number. No other significant masses or calcifications are seen in the breast. IMPRESSION: INCOMPLETE: NEEDS ADDITIONAL IMAGING EVALUATION The grouped heterogeneous calcifications in the right breast are indeterminate. These may represent a degenerating fibroadenoma. Diagnostic mammogram for additional views to include mediolateral and spot magnification views is recommended. Possible right ultrasound also recommended. This exam was interpreted at Station ID: [id number]. NOTE: For mammograms, a report in lay terms will be sent to the patient. Approximately 15% of breast malignancies will not be visualized mammographically. In the management of a palpable breast mass, a negative mammogram must not discourage biopsy of a clinically suspicious lesion. Electronically Signed By: Michael Doran M.D. at/:09/27/2023 18:11:49 copy to: PAT DAVIS letter sent: Additional Imaging Needed ACR BI-RADS Category 0: Incomplete 3340F
== END ==
PROVIDERS: PCP Student in an Organized Health Care Education/Training Program; Referring Provider Student in an Organized Health Care Education/Training Program; Visit Provider Student in an Organized Health Care Education/Training Program
DX: Z12.31 Encounter for screening mammogram for malignant neoplasm of breast (principal); Z85.3 Personal history of malignant neoplasm of breast; R92.323 Mammographic fibroglandular density, bilateral breasts; Z09 Encounter for follow-up examination after completed treatment for conditions other than malignant neoplasm; Z86.000 Personal history of in-situ neoplasm of breast
CPT/HCPCS: 36415; 77063; 77067; 80053; 85025

== ENCOUNTER → 2023-10-22 09:54 | Outpatient (CLI) | payer OTHER, SELFPAY ==
--- NOTE | 2023-10-22 09:55 | DI.MG.S_ITS ---
UNILATERAL RIGHT DIGITAL DIAGNOSTIC MAMMOGRAM 3D/2D WITH ADDITIONAL VIEWS: 10/22/2023 CLINICAL: Additional evaluation requested from prior study. Comparison is made to exams dated: 09/27/2023 mammogram, 09/25/2022 mammogram, and 07/23/2020 mammogram - [facility]. There are scattered areas of fibroglandular density in the right breast (category b / 25%-50% glandular tissue). There are grouped dystrophic calcifications in the right breast at 12 o'clock posterior depth. These are not significantly changed from the 2020 mammogram. No other significant masses or calcifications are seen in the breast. IMPRESSION: BENIGN There is no mammographic evidence of malignancy. Return to annual mammogram screening schedule is recommended. This exam was interpreted at Station ID: [id number]. NOTE: For mammograms, a report in lay terms will be sent to the patient. Approximately 15% of breast malignancies will not be visualized mammographically. In the management of a palpable breast mass, a negative mammogram must not discourage biopsy of a clinically suspicious lesion. Electronically Signed By: Jordyn Gleason M.D. lk/:10/22/2023 10:48:23 copy to: PAT DAVIS letter sent: Normal Exam ACR BI-RADS Category 2: Benign Finding(s) 3342F
== END ==
LOC: MAMMO 09:54
PROVIDERS: PCP Student in an Organized Health Care Education/Training Program; Referring Provider Student in an Organized Health Care Education/Training Program; Visit Provider Student in an Organized Health Care Education/Training Program
DX: R92.8 Other abnormal and inconclusive findings on diagnostic imaging of breast (principal); R92.1 Mammographic calcification found on diagnostic imaging of breast; R92.321 Mammographic fibroglandular density, right breast
CPT/HCPCS: 77065; G0279

== ENCOUNTER → 2024-01-23 11:43 | Outpatient (CLI) | payer OTHER, SELFPAY ==
[2024-01-23 12:41] LABS: Influenza A - CEPHEID Flu A NEGATIVE (NEGATIVE); Influenza B - CEPHEID Flu B NEGATIVE (NEGATIVE); Respiratory Syncytial Virus Negative (Negative)
[2024-01-23 13:06] LABS: COVID-19 CEPHEID 4-PLEX PCR Negative (Negative)
== END ==
PROVIDERS: PCP Student in an Organized Health Care Education/Training Program; Visit Provider Physician Assistant
DX: R05.1 Acute cough (principal)
CPT/HCPCS: 0241U

== ENCOUNTER → 2024-01-23 11:56 | Outpatient (CLI) | payer OTHER, SELFPAY ==
--- NOTE | 2024-01-23 11:57 | DI.RAD.S_ITS ---
PROCEDURE: XR CHEST 2V INDICATIONS: cough and sob x 1 week TECHNIQUE: 2 views of the chest were acquired. COMPARISON: None. FINDINGS: Surgical changes and devices: None. Lungs and pleura: Lungs are clear. No pleural effusions or pneumothorax. Mediastinum: Mediastinal contours are normal. Heart size is normal. Bones and chest wall: No suspicious bony abnormalities. Soft tissues appear unremarkable. IMPRESSION: No acute cardiopulmonary abnormality is seen. Approved by: Alida Garrett M.D.,Ph.D. on 01/23/2024 at 22:05
== END ==
PROVIDERS: PCP Student in an Organized Health Care Education/Training Program; Referring Provider Physician Assistant; Visit Provider Physician Assistant
DX: J06.9 Acute upper respiratory infection, unspecified (principal); R05.1 Acute cough
CPT/HCPCS: 0241U; 71046

== ENCOUNTER → 2024-01-30 | Outpatient (CLI) | payer MEDICARE, SELFPAY ==
--- NOTE | 2024-01-30 08:32 | DI.ECHO.S_ITS ---
[facility] : : [address] : : [id number] : : Phone: [phone] Echocardiogram Report + + :Name: GERARD FENG Study Date: 01/30/2024 Height: 61 in : :[facility] ReadingLocation: Weight: 173 lb : : Gender: Female BSA: 1.8 m2 : :: 1945 Age: 78 yrs BP: 136/87 mmHg: :Reason For Study: ATHEROSCLEROTIC HEAT DISEASE : :Ordering Physician: ANGEL, : :RAYSA Mast Performed By: Luisa Singletary : :Referring: RAYSA KELLYE : + + Interpretation Summary The ejection fraction is estimated to be 50-55%. Diastolic parameters suggest probable normal left ventricular diastolic function and normal filling pressures. The right ventricle is normal in size and function. There is mild mitral regurgitation. There is mild aortic regurgitation. There is mild tricuspid regurgitation. Right ventricular systolic pressure is estimated to be 25 mmHg plus the clinically estimated CVP which cannot be estimated on this exam. The ascending aorta is mildly enlarged, 3.9 cm. Compared to the prior study dated 03/21/2023, no significant change. Procedure: A two-dimensional transthoracic echocardiogram with color flow and Doppler was performed. The study quality was technically adequate. Comparison is made with the echocardiogram of 03/21/2023. The patient was in sinus rhythm with heart rates between 62-72 bpm during the exam. Left Ventricle: The left ventricle is normal in size and wall thickness. The ejection fraction is estimated to be 50-55%. Diastolic parameters suggest probable normal left ventricular diastolic function and normal filling pressures. Right Ventricle: The right ventricle is normal in size and function. Atria: The left atrial size is normal. Right atrial size is normal. There is no Doppler evidence for an interatrial shunt. Mitral Valve: The mitral valve leaflets appear mildly thickened, but open well. There is mild mitral annular calcification. The mitral valve leaflets are slightly calcified. There is slight calcification extending into the subvalvular apparatus. There is mild mitral regurgitation. Aortic Valve: There is mild aortic valve sclerosis. The aortic valve is trileaflet. There is no aortic valve stenosis. There is mild aortic regurgitation. Tricuspid Valve: The tricuspid valve is normal in structure and function. There is mild tricuspid regurgitation. Right ventricular systolic pressure is estimated to be 25 mmHg plus the clinically estimated CVP which cannot be estimated on this exam. Pulmonic Valve: The pulmonic valve is not well seen, but is grossly normal. There is mild pulmonic regurgitation. Great Vessels: The aortic root is normal size. The ascending aorta is mildly enlarged. The inferior vena cava was not visualized. Pericardium/ Pleura There is no pericardial effusion. There is no pleural effusion. MMode/2D Measurements & Calculations LVIDd: 4.1 cm LVOT diam: 2.0 cm LVIDs: 2.9 cm Ao root diam: 3.0 cm FS: 29.6 % asc Aorta Diam: 3.9 cm IVSd: 0.99 cm Ao Arch Diam (Prox Trans): 2.3 cm LVPWd: 0.82 cm LV sánchez. diameter/BSA (cm/m^2): 2.3 LV sys. diameter/BSA (cm/m^2): 1.6 LA A2 area: 13.9 cm2 RA long axis: 4.3 cm LA A4 area: 11.7 cm2 RA area: 10.4 cm2 LA length (vol): 4.6 cm RA vol: 21.2 ml LA vol: 29.9 ml RA : 11.9 ml/m2 LA vol index: 16.8 ml/m2 RVD1 (basal): 2.5 cm RVD2 (mid): 2.5 cm TAPSE: 1.6 cm Doppler Measurements & Calculations Ao V2 max: 138.8 cm/sec LVOT Max Manolo: 82.7 cm/sec Ao V2 mean: 97.0 cm/sec LV V1 max P.7 mmHg Ao max P.7 mmHg LV V1 VTI: 18.6 cm Ao mean P.2 mmHg VISHAL(I,D): 2.0 cm2 Ao V2 VTI: 28.4 cm VISHAL(V,D): 1.8 cm2 sev ratio: 0.65 VISHAL indexed to BSA (cm^2/m^2): 1.1 MV E max manolo: 88.2 cm/sec TR max manolo: 250.5 cm/sec MV A max manolo: 105.0 cm/sec TR max P.1 mmHg MV E/A: 0.84 PA V2 max: 102.6 cm/sec Med Peak E' Manolo: 5.4 cm/sec PA V2 mean: 75.6 cm/sec E/E' med: 16.4 PA mean P.5 mmHg Lat Peak E' Manolo: 8.6 cm/sec PA pr(Accel): 37.9 mmHg E/E' lat: 10.3 E/e' average: 13.3 MV dec time: 0.35 sec MVA(VTI): 1.3 cm2 MV V2 mean: 77.8 cm/sec SV(LVOT): 56.9 ml MV mean P.8 mmHg MV V2 VTI: 42.9 cm Reading Physician:01:04 PM
--- NOTE | 2024-01-31 00:09 | DI.NM.S_ITS ---
DATE OF SERVICE: 01/30/2024 PROCEDURE: Exercise pharmacological perfusion study. INDICATIONS: HFpEF with underlying multivessel coronary artery disease, hypertension, hyperlipidemia. RADIOPHARMACEUTICAL: 27.5 millicuries technetium-99m Myoview IV was injected at stress and 10.0 millicuries technetium-99m Myoview IV was injected at rest. CARDIAC STRESS: The patient underwent IV Lexiscan perfusion study under the supervision of attending staff using standard IV Lexiscan as per protocol. The patient remained hemodynamically stable. Resting blood pressure 108/68 mmHg. Baseline rhythm sinus with intermittent PVCs. During stress, no convincing ischemic changes seen. The patient continued to have intermittent PVCs without any ventricular tachycardia. No chest pain. Had minimal dyspnea and some lightheadedness. No aminophylline required. RAW DATA: There is a breast shadow seen. The patient did not have any prone images. It was scanned with arms hanging down. GATED STUDY: Resting LV ejection fraction 74% and stress LV ejection fraction 82% without any obvious wall motion abnormalities. Resting end- diastolic volume 78 mL. TID ratio 0.74, which is within normal limits. Lung/heart ratio 0.32, which is within normal limits. MYOCARDIAL PERFUSION SCAN: Stress supine and resting supine images were compared to each other. There is a normal myocardial perfusion without any convincing ischemia or infarction. Summed stress score and summed rest score is zero. CONCLUSION: I will call this study a normal myocardial perfusion study without any convincing ischemia or infarction. Summed stress score and summed rest score is zero. Preserved left ventricular function. Resting LV ejection fraction 74% and stress LV ejection fraction 82%. Baseline rhythm sinus with intermittent PVCs. During Lexiscan, no ischemic electrocardiographic changes. No worsening of PVCs. No ventricular tachycardia. Overall, low-risk myocardial perfusion scan. Yesi [facility] - PERRI/riya/VILLA doc#: [id number]/job#: [id number] dd: 01/30/2024 15:22:00 dt: 01/30/2024 19:20:00 DICTATING MD/COPIES TO: Osman Melara MD COPIES MNE: JAYME;
== END ==
LOC: NUCM 08:31
PROVIDERS: PCP Student in an Organized Health Care Education/Training Program; Referring Provider Internal Medicine Cardiovascular Disease; Visit Provider Internal Medicine Cardiovascular Disease
DX: I08.3 Combined rheumatic disorders of mitral, aortic and tricuspid valves (principal); I77.89 Other specified disorders of arteries and arterioles; I25.119 Atherosclerotic heart disease of native coronary artery with unspecified angina pectoris; I50.32 Chronic diastolic (congestive) heart failure
CPT/HCPCS: 78452; 93017; 93306; A9502; J2785

== ENCOUNTER 2024-10-22 09:52 | Emergency (ER) | payer MEDICARE, SELFPAY ==
[2024-10-22] VITALS (11 sets, daily range): BP systolic 133–164; BP diastolic 60–95; PULSE 63–75; RESP 13–20; TEMP 36.1; O2SAT 95–99; BMI 32.1
--- NOTE | 2024-10-22 09:55 | DI.RAD.S_ITS ---
PROCEDURE: XR CHEST 1V INDICATIONS: chest pain TECHNIQUE: One view of the chest was acquired. COMPARISON: [facility], CR, XR CHEST 2V, 01/23/2024, 11:56. FINDINGS: Surgical changes and devices: None. Lungs and pleura: Lungs are clear. No pleural effusions or pneumothorax. Mediastinum: Mediastinal contours appear normal. Heart size is normal. Bones and chest wall: No suspicious bony lesions. Overlying soft tissues appear unremarkable. IMPRESSION: No acute cardiopulmonary pathology. Dictated by: Constantine Choudhury M.D. on 10/22/2024 at 10:13 Approved by: Constantine Choudhury M.D. on 10/22/2024 at 10:13
--- NOTE | 2024-10-22 10:04 | EKG_ITS ---
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
--- NOTE | 2024-10-22 10:22 | EKG_ITS ---
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
[2024-10-22 10:39] LABS: INR 1.5 (0.9-1.3); Prothrombin Time 16.7 SECONDS (9.4-12.5)
[2024-10-22 10:42] LABS: PTT Partial Thromboplastin Tim 44 SECONDS (25.1-36.5)
[2024-10-22 10:46] LABS: Alanine Aminotransferase 24 IU/L (<35); Albumin 4.4 g/dL (3.5-5.0); Albumin Globulin Ratio 1.5 (1.0-2.8); Alkaline Phosphatase 102 U/L (38-126); Aspartate Aminotransferase 29 IU/L (14-36); BUN Creatinine Ratio 21.6 (6-22); Bilirubin Total 0.5 mg/dL (0.2-1.3); Blood Urea Nitrogen 16 mg/dL (7-17); Calcium 9.2 mg/dL (8.4-10.2); Carbon Dioxide 26 mmol/L (22-32); Chloride 102 mmol/L (98-107); Creatine Kinase 111 U/L (30-135); Estimated Glomerular Filt Rate > 60 mL/min (>60); Globulin 2.9 g/dL (1.7-4.1); Glucose 104 mg/dL (80-110); HEMOLYSIS < 15 (0-50); Lipase 80 U/L (23-300); Potassium 3.7 mmol/L (3.4-5.1); Sodium 137 mmol/L (137-145); Total Protein 7.3 g/dL (6.3-8.2)
[2024-10-22 10:51] LABS: Add Manual Diff / Slide Review NO; Basophils Absolute Auto 100 /uL (0-100); Basophils Percent Auto 0.9 % (0-2); Eosinophils Absolute Auto 300 /uL (0-450); Eosinophils Percent Auto 3.5 % (2-4); Hematocrit 41.6 % (36-46); Hemoglobin 13.8 g/dL (12.0-16.0); Lymphocytes Absolute Auto 2300 /uL (1100-4500); Lymphocytes Percent Auto 28.3 % (25-40); Mean Corpuscular HGB Conc 33.3 % (30-36); Mean Corpuscular Hemoglobin 29.3 PG (26-34); Mean Corpuscular Volume 88.1 fL (80-100); Monocytes Absolute Auto 600 /uL (0-900); Monocytes Percent Auto 7.4 % (3-14); Neutrophils Absolute Auto 4900 /uL (1500-7000); Neutrophils Percent Auto 59.9 % (50-75); Platelet Count 256 X10^3/uL (150-400); Red Blood Cell Count 4.72 X10^6/uL (4.0-5.2); Red Cell Distribution Width 14.3 % (11.6-14.8); White Blood Cell Count 8.2 X10^3/uL (4.5-11.0)
[2024-10-22 10:58] LABS: NT-proBNP (BNP-Adult 18+) 220 pg/mL (<450); Troponin I < 0.012 ng/mL (0.01-0.034)
--- NOTE | 2024-10-22 12:42 | PC.NURSE ---
Pts pain is pin point left rib,sharp,worse on inspiration. Pt denies increased pain on palpation.
--- NOTE | 2024-10-22 12:43 | EKG_ITS ---
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
--- NOTE | 2024-10-22 12:55 | ED_ITS ---
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 Patient states she did have a fall about a week ago landed on that area did not have any obvious ecchymosis had some mild discomfort using a heating pad but has been increased over the past 2 days particularly with deep inhalation and somewhat with movement. Patient states no chest pain elsewhere. Has not noticed any rash or skin changes. Patient states no fevers no chills, no new nausea or vomiting. She states it hurts to take a big breath but has not had increasing shortness of breath otherwise. No nausea or vomiting. Recently has a lot of gas but no other changes to bowel movements. No dysuria urgency frequency or other urinary symptoms. No new swelling of extremities. Patient does continue to take Eliquis regularly for atrial fibrillation is on Lasix as well for CHF but was told she was ?out of CHF?, takes medication for hypertension dyslipidemia. She has not had any recent medication changes. Has a history of prior mastectomy scheduled to have follow up mammography has had prior shoulder surgery and cardiac stents. Reports allergy to Demerol. No tobacco, alcohol or recreational drugs. Dr. Chaidez is her primary care physician. 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 She was accompanied by her . Related Data Home Medications Medication Instructions Recorded Confirmed hydrochlorothiazide 12.5 mg capsule 12.5 mg PO DAILY 12/14/20 10/22/24 lisinopril 20 mg tablet 20 mg PO DAILY 12/14/20 10/22/24 acetaminophen 325 mg tablet 650 mg PO Q6H PRN Pain (Scale 05/10/22 10/22/24 (Tylenol) Score 4-6) famotidine 20 mg tablet 20 mg PO BID 09/19/22 10/22/24 apixaban 5 mg tablet (Eliquis) 5 mg PO BID 10/22/24 10/22/24 Previous Rx's Medication Instructions Recorded cetirizine 10 mg chewable tablet 10 mg PO DAILY #30 tabs 01/23/24 (Children's Zyrtec Allergy) fluticasone propionate 50 1 spray intranasal DAILY #16 grams 01/23/24 mcg/actuation nasal spray,suspension (Flonase Allergy Relief) Allergies Allergy/AdvReac Type Severity Reaction Status Date / Time meperidine [From Demerol] AdvReac Severe Nausea & Verified 10/22/24 09:17 Vomiting oxycodone AdvReac Mild Hallucinati Verified 10/22/24 09:17 ons Review of Systems Review of Systems ROS Unobtainable: All systems reviewed & are unremarkable except as noted in HPI and below Patient History Medical History Allergic rhinitis Left carpal tunnel syndrome Advanced directives, counseling/discussion Obesity (BMI 30.0-34.9) History of colonic polyps Menopausal syndrome Primary osteoarthritis involving multiple joints Mixed hyperlipidemia Essential hypertension Medicare annual wellness visit, initial Dizziness Arthritis Anemia Anxiety Hypoglycemia Sinus drainage HLD (hyperlipidemia) HTN (hypertension) Hepatitis A Hypertension Surgical History History of lumpectomy of left breast (03/29/21) History of arthroplasty of left knee History of arthroplasty of right knee History of surgery Hx of dilation and curettage Hx of colonoscopy (2015) S/P rotator cuff repair History of tonsillectomy H/O section Family History Mother Hypertension Father Hypertension Diabetes mellitus Heart disease Social History household members: significant other Smoking Status: Never smoker alcohol intake: current substance use type: does not use Smoking Status: Never smoker alcohol intake frequency: a few times a month Exam Narrative Exam Narrative: GENERAL: Alert and oriented x three, female in mild distress HEENT: Head normocephalic, atraumatic, EOMI, pupils reactive, face symmetric, moist mucous membranes NECK: Supple, full range of motion CARDIOVASCULAR: Regular rate and rhythm without murmurs, rubs or gallops. Patient does have reproducible pain over the angle of the ribs on the left. No ecchymosis, no rash or skin changes. No crepitus. Subcutaneous emphysema. Equal movement bilaterally. RESPIRATORY: Breath sounds equal bilaterally, no wheezes rales or rhonchi. No tachypnea or accessory muscle use. ABDOMEN: Soft, nontender. Normoactive bowel sounds all 4 quadrants. No guarding or rebound, rigidity, no mass : No CVA tenderness EXTREMITIES: Normal range of motion, no clubbing or edema. Neurovascularly intact NEUROLOGICAL: Cranial nerves II through XII grossly intact. Moving all extremities SKIN: Warm, dry, no petechiae, no rashes or lesions. Initial Vital Signs Initial Vital Signs: Vital Signs Temperature 97.0 F L 10/22/24 09:57 Pulse Rate 75 10/22/24 09:57 Respiratory Rate 14 10/22/24 09:57 Blood Pressure 164/95 H 10/22/24 09:57 Pulse Oximetry 98 10/22/24 09:57 Oxygen Delivery Method Room Air 10/22/24 09:57 Course Orders Ordered: ED Orders 10/22/24 12:22 Trop I [Troponin I] Stat Discontinued Medications Aspirin (Aspirin 81 Mg Chew Tab) 324 mg PO NOW ONE Stop: 10/22/24 09:56 Last Admin: 10/22/24 10:14 Dose: Not Given Documented By: ROBERTA Vital Signs Vital signs: Vital Signs - 8 hr 10/22/24 12:45 10/22/24 12:46 10/22/24 12:46 Pulse Rate 65 65 Respiratory Rate 13 Blood Pressure 152/70 H Pulse Oximetry 99 99 Oxygen Delivery Method 10/22/24 13:00 10/22/24 13:00 10/22/24 13:50 Pulse Rate 66 65 Respiratory Rate 17 20 Blood Pressure 143/68 H 135/60 Pulse Oximetry 97 98 Oxygen Delivery Method Room Air MDM - Chest Pain Lab Data 10/22/24 10:20 10/22/24 10:20 Labs: Lab Results 10/22/24 10/22/24 Range/Units 10:20 12:22 WBC 8.2 (4.5-11.0) X10^3/uL RBC 4.72 (4.0-5.2) X10^6/uL Hgb 13.8 (12.0-16.0) g/dL Hct 41.6 (36-46) % MCV 88.1 (80-100) fL MCH 29.3 (26-34) PG MCHC 33.3 (30-36) % RDW 14.3 (11.6-14.8) % Plt Count 256 (150-400) X10^3/uL Neut % (Auto) 59.9 (50-75) % Lymph % (Auto) 28.3 (25-40) % [place] % (Auto) 7.4 (3-14) % Eos % (Auto) 3.5 (2-4) % Baso % (Auto) 0.9 (0-2) % Neut # (Auto) 4900 (5218-7576) /uL Lymph # (Auto) 2300 (5879-6495) /uL [place] # (Auto) 600 (0-900) /uL Eos # (Auto) 300 (0-450) /uL Baso # (Auto) 100 (0-100) /uL PT 16.7 H (9.4-12.5) SECONDS INR 1.5 H (0.9-1.3) APTT 44 H (25.1-36.5) SECONDS Sodium 137 (137-145) mmol/L Potassium 3.7 (3.4-5.1) mmol/L Chloride 102 (98-107) mmol/L Carbon Dioxide 26 (22-32) mmol/L BUN 16 (7-17) mg/dL Creatinine 0.74 (0.52-1.04) mg/dL Estimated GFR > 60 (>60) mL/min BUN/Creatinine Ratio 21.6 (6-22) Glucose 104 (80-110) mg/dL Calcium 9.2 (8.4-10.2) mg/dL Magnesium 2.0 (1.6-2.3) mg/dL Total Bilirubin 0.5 (0.2-1.3) mg/dL AST 29 (14-36) IU/L ALT 24 (<35) IU/L Alkaline Phosphatase 102 (38-126) U/L Total Creatine Kinase 111 (30-135) U/L Troponin I < 0.012 < 0.012 (0.01-0.034) ng/mL NT-Pro-B Natriuret Pep 220 (<450) pg/mL Total Protein 7.3 (6.3-8.2) g/dL Albumin 4.4 (3.5-5.0) g/dL Globulin 2.9 (1.7-4.1) g/dL Albumin/Globulin Ratio 1.5 (1.0-2.8) Lipase 80 (23-300) U/L Imaging Data Chest x-ray: Radiologist's Impression: Close Chest X-Ray (Signed) Constantine Choudhury - 10/22/24 Radiology Report (Cancelled) Swati Melaraariadne - 01/31/24 Myocardial Perfusion Scan Nuc Med (Signed) NavneetnorbertcarinSwatiedwaru - 01/31/24 Echocardiogram Ultrasound (Signed) Raysa Kelley - 01/30/24 Chest X-Ray (Signed) Alida Garrett - 01/23/24 Mammogram, Additional Views (Signed) Jordyn Gleason - 10/22/23 Mammogram Screening (Signed) Michael Doran - 09/27/23 Echocardiogram Ultrasound (Signed) Raysa Kelley - 03/21/23 Mammogram Screening (Signed) Jordyn Gleason - 09/25/22 Telemetry Strips 05/17/21 Breast Needle Localization (Signed) Constantine Choudhury - 03/29/21 Surgical Specimen Imaging (Signed) Call[place]ansisco - 03/29/21 Breast Biopsy Ultrasound (Signed) Aron Edward - 01/25/21 Mammogram Diagnostic (Signed) Aron Edward - 01/25/21 Breast Ultrasound (Signed) Michael Doran - 01/11/21 Breast MRI (Addendum) Fransisco Larios - 12/29/20 Outside DI 09/06/20 Mammogram, Additional Views (Signed) Michael Doran - 08/17/20 Mammogram Screening (Signed) Daniele Walton - 07/23/20 Launch?[facility] [address] [address] XRay Report Signed Patient: Yesi Clayton MR#: [id number] : 1945 Acct:[id number] Age/Sex: 79 / F Date of Service: 10/22/24 Loc: ED Accession Number: [id number] Procedure: XR chest 1V Ordering Provider: Rosmery Mtz D.O. PROCEDURE: XR CHEST 1V INDICATIONS: chest pain TECHNIQUE: One view of the chest was acquired. COMPARISON: [facility], , XR CHEST 2V, 01/23/2024, 11:56. FINDINGS: Surgical changes and devices: None. Lungs and pleura: Lungs are clear. No pleural effusions or pneumothorax. Mediastinum: Mediastinal contours appear normal. Heart size is normal. Bones and chest wall: No suspicious bony lesions. Overlying soft tissues appear unremarkable. IMPRESSION: No acute cardiopulmonary pathology. Dictated by: Constantine Choudhury M.D. on 10/22/2024 at 10:13 Approved by: Constantine Choudhury M.D. on 10/22/2024 at 10:13 ECG Data Attestation: I personally reviewed and interpreted this ECG as follows: Interpretation: Sinus rhythm premature atrial complexes incomplete right bundle left anterior fascicular block rate of 68, IL 204 QTC of 0 2, QTC of 457, no acute ST elevation depression noted. EKG 2. Sinus rhythm with first-degree AV block premature atrial complexes incomplete right bundle, rate of 63, IL 224 QRS of 102 QTC of 446. No dynamic changes appreciated no new elevation or depression appreciated. EKG 3. Sinus rhythm first-degree AV block premature atrial complexes incomplete right bundle, left anterior fascicular block, rate of 67, IL 218 QRS of 104 QTC of 471 no dynamic changes no new inversions or ST elevation. MDM Narrative Medical decision making narrative: 79-year-old female with reproducible chest pain over the right rib patient did have a fall about a week states pain was but increased over the past 2 days was concerned could potentially be cardiac or CHF. Discussed with patient workup was overall reassuring no acute EKG changes. Patient's pain is redemonstrated with palpation and I suspect she has rib contusion as she is tender but not exquisitely. Discussed with patient she feel comfortable taking Tylenol for pain management. We will discharge home with incentive spirometer.. EKG shows sinus rhythm with premature atrial complexes no acute ST segment changes. Patient had repeat EKGs with no dynamic changes appreciated CBC shows no acute change, INR is 1.5 patient was on apixaban daily, electrolytes are appropriate creatinine 0.74 glucose is 104 lipase and LFTs are negative. Initial troponins less than 0.012 with a BNP of 220. Repeat troponin is less than 0.012. Chest x-ray shows no acute cardiopulmonary change. Discharge Plan Departure Patient Disposition: Home Clinical Impression: Left-sided chest pain Instructions: DI for Rib Fracture Activity Restrictions/Additional Instructions: Please follow up for recheck as needed. I suspect you either has a contusion of your rib or possibly a small fracture. There is none visualized currently on your imaging but non-displaced fractures are not always seen on xray. You can continue your home medications as prescribed. You can take up to a 1000 mg of acetaminophen every 6 hours as needed. Use incentive spirometer hourly while awake until your pain has not improved. This is to encourage good breath so you do not develop pneumonia. Please return for rapidly worsening symptoms fevers, coughing up blood, worsening chest pain, increasing shortness of breath, vomiting, new bruising or skin changes, lightheadedness or passing, increasing swelling of extremities or other new or concerning changes. Prescriptions: No Action Eliquis 5 mg tablet 5 mg PO BID fluticasone propionate [Flonase Allergy Relief] 50 mcg/actuation spray,suspension 1 spray intranasal DAILY Qty: 16 0RF Rx Instructions: administer into each nostril cetirizine [Children's Zyrtec Allergy] 10 mg tablet,chewable 10 mg PO DAILY Qty: 30 0RF acetaminophen [Tylenol] 325 mg tablet 650 mg PO Q6H PRN (Reason: Pain (Scale Score 4-6)) lisinopril 20 mg tablet 20 mg PO DAILY hydrochlorothiazide 12.5 mg capsule 12.5 mg PO DAILY famotidine 20 mg Tablet 20 mg PO BID Referrals: Kelton Chaidez MD [Primary Care Provider] - Stand Alone Forms: Patient Portal/API/Survey
[2024-10-22 13:06] LABS: Troponin I < 0.012 ng/mL (0.01-0.034)
== END 2024-10-22 13:52 | disposition home or self-care (01) ==
PROVIDERS: Emergency Provider Emergency Medicine; PCP Family Medicine
DX: R07.89 Other chest pain (principal); I48.91 Unspecified atrial fibrillation; I49.1 Atrial premature depolarization; I50.9 Heart failure, unspecified; I11.0 Hypertensive heart disease with heart failure; E78.5 Hyperlipidemia, unspecified; I25.10 Atherosclerotic heart disease of native coronary artery without angina pectoris; Z95.5 Presence of coronary angioplasty implant and graft; Z79.01 Long term (current) use of anticoagulants; Z85.3 Personal history of malignant neoplasm of breast
CPT/HCPCS: 36415; 71045; 80053; 82550; 83690; 83735; 83880; 84484; 85025; 85610; 85730; 93005; 93010; 99284; 99285

== ENCOUNTER → 2025-08-03 16:40 | Outpatient (CLI) | payer MEDICARE, SELFPAY ==
[2025-08-03 17:57] LABS: Hematocrit 40.2 % (36-46); Hemoglobin 13.9 g/dL (12.0-16.0); Mean Corpuscular HGB Conc 34.4 % (30-36); Mean Corpuscular Hemoglobin 30.6 PG (26-34); Mean Corpuscular Volume 88.8 fL (80-100); Platelet Count 293 X10^3/uL (150-400)
[2025-08-03 18:20] LABS: Alanine Aminotransferase 34 IU/L (<35); Albumin 4.5 g/dL (3.5-5.0); Albumin Globulin Ratio 1.9 (1.0-2.8); Alkaline Phosphatase 98 U/L (38-126); Blood Urea Nitrogen 30 mg/dL (7-17); Calcium 9.3 mg/dL (8.4-10.2); Carbon Dioxide 24 mmol/L (22-32); Chloride 101 mmol/L (98-107); Cholesterol 173 mg/dL (140-199); Estimated Glomerular Filt Rate 54 mL/min (>60); Globulin 2.4 g/dL (1.7-4.1); Glucose 135 mg/dL (70-99); HDL Cholesterol 39 mg/dL (40-60); HEMOLYSIS < 15 (0-50); Potassium 4.6 mmol/L (3.4-5.1); Sodium 137 mmol/L (137-145); Total Protein 6.9 g/dL (6.3-8.2); Triglycerides 248 mg/dL (35-150)
[2025-08-03 18:29] LABS: NT-proBNP (BNP-Adult 18+) 2450 pg/mL (<450)
[2025-08-03 18:52] LABS: TSH w/ Reflex to FT4 0.05 uIU/mL (0.47-4.68)
[2025-08-03 19:34] LABS: Free T4, Direct Thyroxine 1.68 ng/dL (0.78-2.19)
== END ==
PROVIDERS: PCP Internal Medicine; Referring Provider Internal Medicine; Visit Provider Internal Medicine
DX: I25.10 Atherosclerotic heart disease of native coronary artery without angina pectoris (principal); I50.22 Chronic systolic (congestive) heart failure; E78.2 Mixed hyperlipidemia
CPT/HCPCS: 36415; 80053; 80061; 83880; 84439; 84443; 85027

== ENCOUNTER → 2025-08-06 10:51 | Outpatient (CLI) | payer MEDICARE, SELFPAY ==
--- NOTE | 2025-08-06 10:52 | DI.RAD.S_ITS ---
PROCEDURE: XR CHEST 2V INDICATIONS: dyspnea TECHNIQUE: 2 views of the chest were acquired. COMPARISON: [facility], CR, XR CHEST 1V, 10/22/2024, 9:53. [facility], CR, XR CHEST 2V, 01/23/2024, 11:56. FINDINGS: Surgical changes and devices: None. Lungs and pleura: Lungs are clear. No pleural effusions or pneumothorax. Mediastinum: Mediastinal contours are normal. Heart size is normal. Bones and chest wall: No suspicious bony abnormalities. Soft tissues appear unremarkable. IMPRESSION: No acute cardiopulmonary abnormality is seen. Dictated by: Reji Brown M.D. on 08/06/2025 at 16:48 Approved by: Reji Brown M.D. on 08/06/2025 at 16:48
== END ==
LOC: RAD 10:52
PROVIDERS: PCP Internal Medicine; Referring Provider Internal Medicine; Visit Provider Internal Medicine
DX: I25.10 Atherosclerotic heart disease of native coronary artery without angina pectoris (principal)
CPT/HCPCS: 71046

== ENCOUNTER → 2025-08-27 08:50 | Outpatient (CLI) | payer MEDICARE, SELFPAY ==
[2025-08-27 11:00] LABS: Blood Urea Nitrogen 22 mg/dL (7-17); Calcium 9.5 mg/dL (8.4-10.2); Carbon Dioxide 29 mmol/L (22-32); Chloride 99 mmol/L (98-107); Estimated Glomerular Filt Rate > 60 mL/min (>60); Glucose 123 mg/dL (70-99); HEMOLYSIS < 15 (0-50); Potassium 4.7 mmol/L (3.4-5.1); Sodium 139 mmol/L (137-145)
== END ==
PROVIDERS: PCP Internal Medicine; Referring Provider Internal Medicine; Visit Provider Internal Medicine
DX: I50.32 Chronic diastolic (congestive) heart failure (principal)
CPT/HCPCS: 36415; 80048